=== PATIENT | male | born 1995 | race Caucasian/White ===

== ENCOUNTER 2017-08-26 22:07 | Emergency (ER) | payer MEDICAID ==
[~2017-08-26] VITALS: Ht 185.4 cm; Wt 79.4 kg
[~2017-08-26 22:07] MED LIST: ACET325 PO; ALBU90OI INH; ATOM25 PO; Amoxicillin500 MG PO; HYDACE5 PO; IBUP400 PO; IBUP600 PO; IBUP800 PO; JOCK ITCH15 GM TOP; MAGIC MOUTHWASH; Norco 5-325 Ta1 EACH PO; OXYACE5T PO; PENVK500 PO; PERM5TC TOP; Prednisone20 MG PO; RXOXYACE PO; SPACE CHAMBER1 EACH MC; WARF1 PO; WARF6 PO
[2017-08-26] MEDS ORDERED: IBUP600 PO (22:49)
[2017-08-26] MEDS ORDERED: Norco 5-325 Ta1 EACH PO (22:49)
== END 2017-08-26 23:03 | disposition home or self-care (01) ==
LOC: ER 22:07
DX: S63.114A Dislocation of metacarpophalangeal joint of right thumb, initial encounter (principal); F17.210 Nicotine dependence, cigarettes, uncomplicated; Z79.899 Other long term (current) drug therapy; W01.0XXA Fall on same level from slipping, tripping and stumbling without subsequent striking against object, initial encounter
CPT/HCPCS: 29125; 73130; 99283

== ENCOUNTER 2017-08-27 21:56 | Emergency (ER) | payer MEDICAID ==
[~2017-08-27] VITALS: Ht 185.4 cm; Wt 79.4 kg
== END 2017-08-27 23:40 | disposition home or self-care (01) ==
LOC: ER 21:56
DX: M79.641 Pain in right hand (principal); F17.210 Nicotine dependence, cigarettes, uncomplicated
CPT/HCPCS: 99282

== ENCOUNTER 2017-12-07 13:56 | Emergency (ER) | payer OTHER ==
[~2017-12-07] VITALS: Ht 185.4 cm; Wt 83.9 kg
[2017-12-07] MEDS ORDERED: Bactrim Ds Tab1 EACH PO (14:39)
== END 2017-12-07 14:42 | disposition home or self-care (01) ==
LOC: ER 13:56
DX: L03.113 Cellulitis of right upper limb (principal); F17.210 Nicotine dependence, cigarettes, uncomplicated
CPT/HCPCS: 99282

== ENCOUNTER 2018-04-16 13:09 | Emergency (ER) | payer OTHER ==
[~2018-04-16] VITALS: Ht 185.4 cm; Wt 82.1 kg
[~2018-04-16 13:09] MED LIST changes: +Bactrim Ds Tab1 EACH PO
[2018-04-16] MEDS ORDERED: DEXA4 PO (13:45)
[2018-04-16] MEDS ORDERED: Amoxicillin500 MG PO (13:45)
[2018-04-16] MEDS ORDERED: IBUP600 PO (13:54)
== END 2018-04-16 13:58 | disposition home or self-care (01) ==
LOC: ER 13:09
DX: J02.9 Acute pharyngitis, unspecified (principal); F17.210 Nicotine dependence, cigarettes, uncomplicated
CPT/HCPCS: 99283

== ENCOUNTER 2018-06-05 19:36 | Emergency (ER) | payer OTHER ==
[~2018-06-05] VITALS: Ht 185.4 cm; Wt 79.4 kg
[~2018-06-05 19:36] MED LIST changes: +DEXA4 PO
[2018-06-05] MEDS ORDERED: Augmentin 875-1 EACH PO (20:51)
== END 2018-06-05 21:08 | disposition home or self-care (01) ==
LOC: ER 19:36
DX: K04.7 Periapical abscess without sinus (principal); K03.81 Cracked tooth; K02.9 Dental caries, unspecified; F17.210 Nicotine dependence, cigarettes, uncomplicated
CPT/HCPCS: 41800; 99282-25

== ENCOUNTER 2019-02-12 15:36 | Inpatient (IN) | payer OTHER ==
[~2019-02-12] VITALS: Ht 177.8 cm; Wt 80.2 kg
[~2019-02-12 15:36] MED LIST changes: +Augmentin 875-1 EACH PO
[2019-02-12] MEDS ORDERED: ACET325 PO (15:42)
[2019-02-12] MEDS ORDERED: IBUP600 PO (15:43)
[2019-02-12 16:25] LABS: BASOPHILS ABSOLUTE AUTO 0.03 K/mm3 (0.00-0.23); BASOPHILS PERCENT AUTO 0 % (0-2); EOSINOPHILS ABSOLUTE AUTO 0.19 K/mm3 (0.00-0.68); EOSINOPHILS PERCENT AUTO 1 % (0-6); Hematocrit 44.8 % (37.0-53.0); Hemoglobin 14.8 g/dL (13.5-17.5); IMMATURE GRAN ABSOLUTE AUTO 0.09 K/mm3 (0.00-0.10); IMMATURE GRAN PERCENT AUTO 1 % (0-1); LYMPHOCYTES ABSOLUTE AUTO 1.91 K/mm3 (0.84-5.20); LYMPHOCYTES PERCENT AUTO 10 % (21-46); MONOCYTES PERCENT AUTO 6 % (4-13); Mean Corpuscular HGB 30.6 pg (26.0-34.0); Mean Corpuscular Volume 93 fL (80-100); NEUTROPHILS PERCENT AUTO 82 % (41-73); Platelet Count 318 K/mm3 (150-400); RDW Coefficient Variation 12.1 % (11.7-14.2); RDW Standard Deviation 41.7 fL (35.1-46.3); Red Blood Cell Count 4.83 M/mm3 (4.30-5.90); White Blood Cell Count 19.22 K/mm3 (4.00-11.30)
[2019-02-12 16:42] LABS: Alanine Aminotransfer (ALT/SGP 17 U/L (12-78); Albumin, Blood 3.9 g/dL (3.4-5.0); Albumin/Globulin Ratio 0.9 (0.8-1.8); Alk Phos 87 U/L (50-136); Anion Gap 5 mmol/L (6-16); Aspartate Aminotrans (AST/SGOT 14 U/L (12-37); Bilirubin, Total 0.3 mg/dL (0.1-1.0); Blood Urea Nitrogen 7 mg/dL (8-24); Bun/Creatinine Ratio 9.6 (12.0-20.0); CO2, Blood 27 mmol/L (21-32); Calcium, Blood 9.2 mg/dL (8.5-10.1); Chloride, Blood 105 mmol/L (98-108); Creatinine, Blood 0.73 mg/dL (0.60-1.20); Globulin, Blood 4.2 g/dL (2.2-4.0); Glomerular Filtration Rate >60 (60-); Glucose, Blood 93 mg/dL (70-99); Potassium, Blood 3.5 mmol/L (3.5-5.5); Sodium, Blood 137 mmol/L (136-145); Total Protein, Blood 8.1 g/dL (6.4-8.2)
[2019-02-13 05:05] LABS: BASOPHILS ABSOLUTE AUTO 0.05 K/mm3 (0.00-0.23); BASOPHILS PERCENT AUTO 0 % (0-2); EOSINOPHILS PERCENT AUTO 2 % (0-6); Hematocrit 43.1 % (37.0-53.0); Hemoglobin 14.2 g/dL (13.5-17.5); IMMATURE GRAN ABSOLUTE AUTO 0.08 K/mm3 (0.00-0.10); IMMATURE GRAN PERCENT AUTO 1 % (0-1); LYMPHOCYTES ABSOLUTE AUTO 2.29 K/mm3 (0.84-5.20); LYMPHOCYTES PERCENT AUTO 14 % (21-46); MONOCYTES ABSOLUTE AUTO 1.42 K/mm3 (0.16-1.47); MONOCYTES PERCENT AUTO 9 % (4-13); Mean Corpuscular HGB 30.5 pg (26.0-34.0); Mean Corpuscular HGB Conc 32.9 g/dL (31.5-36.5); Mean Corpuscular Volume 93 fL (80-100); Mean Platelet Volume 9.8 fL (9.1-12.4); NEUTROPHILS ABSOLUTE AUTO 12.46 K/mm3 (1.96-9.15); NEUTROPHILS PERCENT AUTO 75 % (41-73); Platelet Count 276 K/mm3 (150-400); RDW Coefficient Variation 12.3 % (11.7-14.2); RDW Standard Deviation 42.1 fL (35.1-46.3); Red Blood Cell Count 4.65 M/mm3 (4.30-5.90)
[2019-02-13 05:28] LABS: Anion Gap 6 mmol/L (6-16); Blood Urea Nitrogen 6 mg/dL (8-24); Bun/Creatinine Ratio 6.9 (12.0-20.0); CO2, Blood 26 mmol/L (21-32); Calcium, Blood 8.7 mg/dL (8.5-10.1); Chloride, Blood 106 mmol/L (98-108); Creatinine, Blood 0.88 mg/dL (0.60-1.20); Glomerular Filtration Rate >60 (60-); Glucose, Blood 111 mg/dL (70-99); Potassium, Blood 3.9 mmol/L (3.5-5.5); Sodium, Blood 138 mmol/L (136-145)
--- NOTE | 2019-02-13 06:10 | NUR ---
SHIFT SUMMARY ADMIT @ 193. AOX4. LS CLEAR, DENIES SOB. NO C/O NAUSEA. PAIN IN R ARM D/T CELLULITIS. TYLENOL @ 4400. 2 PERCOCET @ 0300. L AC IV HAS ABX INFUSING. R ARM IS VERY RED AND SWOLLEN WITH SOME OPEN AREAS. PT RECENTLY HAD TATTOO AND SAID HE DIDN'T COVER IT PROPERLY AND THINKS THAT IS THE CAUSE. HX OF METH USE BUT HE STATES HE SMOKES AND DOESN'T INJECT. REG DIET TOLERATING WELL.
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
--- NOTE | 2019-02-13 20:23 | NUR ---
PATIENT OUT FOR 45 MINUTES AFTER FOLLOWING S/O OUT FOR HER TO LEAVE. FOUND BY SECURITY AND TOLD HE NEEDED TO COME BACK INSIDE TO ROOM. PREVIOUS SHIFT RN AND THIS RN ENTERED ROOM AT SHIFT CHANGE TO EXPLAIN TO GIRLFRIEND THAT IF SHE WAS NOT ABLE TO STOP YELLING IN ROOM, THAT SECURITY WOULD BE CALLED TO REMOVE HER FROM BUILDING. 30 MINUTES LATER, SHE WAS ASKED BY THIS RN TO STOP YELLING AND THAT SHE WAS UPSETTING OTHER PATIENTS. SHE LEFT TEARFULLY AT 1930. PATIENT RETURNED ALONE TO ROOM AT 2019.
[2019-02-14 04:42] LABS: BASOPHILS ABSOLUTE AUTO 0.03 K/mm3 (0.00-0.23); BASOPHILS PERCENT AUTO 0 % (0-2); EOSINOPHILS ABSOLUTE AUTO 0.33 K/mm3 (0.00-0.68); EOSINOPHILS PERCENT AUTO 2 % (0-6); Hematocrit 44.1 % (37.0-53.0); Hemoglobin 14.5 g/dL (13.5-17.5); IMMATURE GRAN ABSOLUTE AUTO 0.09 K/mm3 (0.00-0.10); IMMATURE GRAN PERCENT AUTO 1 % (0-1); LYMPHOCYTES ABSOLUTE AUTO 3.33 K/mm3 (0.84-5.20); LYMPHOCYTES PERCENT AUTO 20 % (21-46); MONOCYTES ABSOLUTE AUTO 1.79 K/mm3 (0.16-1.47); MONOCYTES PERCENT AUTO 11 % (4-13); Mean Corpuscular HGB Conc 32.9 g/dL (31.5-36.5); Mean Corpuscular Volume 91 fL (80-100); Mean Platelet Volume 9.8 fL (9.1-12.4); NEUTROPHILS PERCENT AUTO 67 % (41-73); Platelet Count 277 K/mm3 (150-400); RDW Coefficient Variation 12.2 % (11.7-14.2); RDW Standard Deviation 40.7 fL (35.1-46.3); Red Blood Cell Count 4.83 M/mm3 (4.30-5.90); White Blood Cell Count 17.07 K/mm3 (4.00-11.30)
[2019-02-14 05:02] LABS: Anion Gap 8 mmol/L (6-16); Blood Urea Nitrogen 7 mg/dL (8-24); Bun/Creatinine Ratio 8.3 (12.0-20.0); CO2, Blood 25 mmol/L (21-32); Calcium, Blood 8.8 mg/dL (8.5-10.1); Chloride, Blood 106 mmol/L (98-108); Creatinine, Blood 0.84 mg/dL (0.60-1.20); Glomerular Filtration Rate >60 (60-); Glucose, Blood 72 mg/dL (70-99); Potassium, Blood 3.7 mmol/L (3.5-5.5); Sodium, Blood 139 mmol/L (136-145)
--- NOTE | 2019-02-14 17:07 | NUR ---
Shift Summary A/Ox4. Cooperative with care, no behavioral issues noted this shift. Pt went outside x 1 to smoke, has been refusing nicotine patch, he takes about an hour when he goes. This RN has been educating pt on the need to wait until abx has completed before he can go, pt is agreeable. Denies N/V. C/o R arm throbbing and pulsating pain. Medicated per EMAR x 1. Independent in room, sister has been at bedside. No other acute changes this shift.
[2019-02-15 13:31] LABS: Vancomycin, Trough 23.6 ug/mL (5.0-10.0)
--- NOTE | 2019-02-15 16:47 | NUR ---
Shift Summary A/Ox4. Pleasant and cooperative with care. Pt continues to decline nicotine patch and prefers to go outside for cigarette. Pt went outside x 2 today. C/o R arm pain of 8/10, relieved with toradol and tylenol and down to 4/10. Medicated for pain x 1. No c/o issues with GI/. Wound draining purulent, brown tinged, non-odorous drainage on R arm above elbow. Wound care x 1 to contain drainage. Plan is poss. d/c tomorrow c oral abx pending WBC trends.
--- NOTE | 2019-02-15 23:29 | NUR ---
REMOVED DRESSING RIGHT MID ARM AFTER PATIENT SHOWERED THIS EVENING. PARTIALLLY ATTACHED PIECE OF MACERATED APPEARING SLOUGH WAS EXPRESSED FROM WOUND BED AND DETACHED. PATIENT TOLERATED FAIRLY WELL, BUT DID STATE THAT WAS "MUCH WORSE THAN THE EXPRESSION OF THE PURULENT FLUID EXPRESSED LAST NIGHT AND THIS MORNING. NO BLEEDING AT SITE AFTERWARDS. ALLOWED WOUND TO BE OPEN TO AIR FOR APPROX 30 MINUTES BEFORE REDRESSING IT USING HYDROGEL AND ABD OVERLAY.
--- NOTE | 2019-02-16 05:41 | NUR ---
ACTUALLLY SLEPT WELL OVERNIGHT. OUT TWICE TO SMOKE. RIGHT ARM DRESSING REMAINED INTACT AFTER CHANGE WHEN PATIENT GOT OUT OF SHOWER. SMALLER SCABBED AREA ADJACENT TO OPEN AREA NEAR ELBOW IS NOW OPEN AND DRAINING. PATIENT STATED SAME PURULENT STUFF CAME OUT OF THAT THE LARGER ONE. COVERED THAT AREA W ITH HYDROGEL, GAUZE AND BANDAID. NO FURTHER CHANGES OVERNIGHT
[2019-02-16] MEDS ORDERED: CLIN300 PO (11:06)
--- NOTE | 2019-02-16 12:50 | NUR ---
PT DCD HOME. ALL RX AND FOLLOW UP APPTS REVIEWED WITH PT WHO VERBALIZES AN UNDERSTANDING. RX FAXED TO [facility]. PT HAS [facility] NEW PATIENT PACKET AND AGREES TO CALL TO SET UP NEW PT APPT. IV REMOVED WITH NO ISSUE. RIGHT ARM WOUND WAS CLEANSED AND DRESSED BEFORE DC. ALL PERSONAL BELONGINGS SENT WITH PT. PT STABLE UPON DC.
== END 2019-02-16 12:45 | disposition home or self-care (01) | DRG 872 ==
LOC: ER 15:36 → MEDS 18:02 → ENPENDDIS 02-16 09:36 → MEDS 02-16 12:45
PROVIDERS: Emergency Medicine; Hospitalist; Nurse Practitioner Acute Care; Physician Assistant; ADMIT Student in an Organized Health Care Education/Training Program
DX: A41.9 Sepsis, unspecified organism (principal); L03.113 Cellulitis of right upper limb; F32.9 Major depressive disorder, single episode, unspecified; F17.200 Nicotine dependence, unspecified, uncomplicated; F43.10 Post-traumatic stress disorder, unspecified; K02.9 Dental caries, unspecified
CPT/HCPCS: 36415; 76882; 80048; 80053; 80202; 83605; 85025; 87040; 90686; 96365; 96367; 96375; 99284-25; A9270; J0690; J1170; J1885; J2405; J2543; J3370; J7030; J7050; Q0163

== ENCOUNTER 2019-03-02 14:11 | Emergency (ER) | payer OTHER ==
[~2019-03-02] VITALS: Ht 185.4 cm; Wt 80.7 kg
[~2019-03-02 14:11] MED LIST changes: +CLIN300 PO
[2019-03-02] MEDS ORDERED: Veetids 500500 MG PO (15:15)
== END 2019-03-02 15:22 | disposition home or self-care (01) ==
LOC: ER 14:11
DX: K02.9 Dental caries, unspecified (principal); F17.210 Nicotine dependence, cigarettes, uncomplicated
CPT/HCPCS: 99282

== ENCOUNTER 2019-03-09 12:04 | Emergency (ER) | payer OTHER ==
[~2019-03-09] VITALS: Ht 185.4 cm; Wt 81.2 kg
[~2019-03-09 12:04] MED LIST changes: +Veetids 500500 MG PO
[2019-03-09 13:06] LABS: Source, Urine Clean Catch
[2019-03-09 13:18] LABS: Bilirubin, Urine Neg (Neg); Blood, Urine 1+ (Neg); Glucose Qualitative, Urine Neg (Neg); Ketones, Urine Neg (Neg); Leukocyte Esterase, Urine 2+ (Neg); Nitrite, Urine Pos (Neg); Protein, Urine Neg (Neg); Specific Gravity, Urine 1.015 (1.003-1.022); Urobilinogen, Urine NORM (Normal)
[2019-03-09 13:37] LABS: Appearance, Urine Hazy (Clear); Color, Urine Yellow (P-Yellow)
[2019-03-09 13:38] LABS: Bacteria Many /hpf; Squamous Epithelial Cells Rare /hpf (Few)
[2019-03-09] MEDS ORDERED: Bactrim Ds Tab1 EACH PO (13:58)
== END 2019-03-09 14:00 | disposition home or self-care (01) ==
LOC: ER 12:04
PROVIDERS: Physician Assistant
DX: N39.0 Urinary tract infection, site not specified (principal); F17.210 Nicotine dependence, cigarettes, uncomplicated
CPT/HCPCS: 81001; 87077; 87086; 87186; 99283; A9270-GY

== ENCOUNTER 2019-07-12 12:40 | Emergency (ER) | payer OTHER ==
[~2019-07-12] VITALS: Ht 185.4 cm; Wt 83.9 kg
[2019-07-12] MEDS ORDERED: Bactrim Ds Tab1 EACH PO (13:26)
[2019-07-12] MEDS ORDERED: CEPH500 PO (13:26)
== END 2019-07-12 13:32 | disposition home or self-care (01) ==
LOC: ER 12:40
DX: L02.411 Cutaneous abscess of right axilla (principal); K13.0 Diseases of lips; F17.210 Nicotine dependence, cigarettes, uncomplicated; Z88.0 Allergy status to penicillin; Z88.5 Allergy status to narcotic agent
CPT/HCPCS: 96372; 99283; J1885

== ENCOUNTER 2019-07-15 15:08 | Emergency (ER) | payer OTHER ==
[~2019-07-15] VITALS: Ht 185.4 cm; Wt 83.9 kg
[~2019-07-15 15:08] MED LIST changes: +CEPH500 PO
[2019-07-15] MEDS ORDERED: Mupirocin22 GM TOP (15:48)
== END 2019-07-15 15:44 | disposition home or self-care (01) ==
LOC: ER 15:08
DX: L02.411 Cutaneous abscess of right axilla (principal); F17.210 Nicotine dependence, cigarettes, uncomplicated; Z88.0 Allergy status to penicillin; Z88.5 Allergy status to narcotic agent
CPT/HCPCS: 10061; 99283-25

== ENCOUNTER 2019-10-03 12:47 | Emergency (ER) | payer OTHER ==
[~2019-10-03] VITALS: Ht 185.4 cm; Wt 83.9 kg
[~2019-10-03 12:47] MED LIST changes: +Cleocin HCl300 MG PO; +IBU800 MG PO; +Mupirocin22 GM TOP
[2019-10-03] MEDS ORDERED: Cleocin HCl300 MG PO (14:12)
[2019-10-03] MEDS ORDERED: KETO10 PO (14:12)
== END 2019-10-03 14:24 | disposition home or self-care (01) ==
LOC: ER 12:47
DX: K02.9 Dental caries, unspecified (principal); F17.210 Nicotine dependence, cigarettes, uncomplicated; Z88.0 Allergy status to penicillin; Z88.6 Allergy status to analgesic agent; Z79.899 Other long term (current) drug therapy
CPT/HCPCS: 96372; 99282-25; J1885

== ENCOUNTER 2020-06-02 10:49 | Emergency (ER) | payer OTHER ==
[~2020-06-02] VITALS: Ht 185.4 cm; Wt 88.5 kg
[~2020-06-02 10:49] MED LIST changes: +KETO10 PO
[2020-06-02] MEDS ORDERED: BANOPHEN25 MG PO (11:23)
[2020-06-02] MEDS ORDERED: ALLERCLEAR10 MG PO (11:23)
== END 2020-06-02 11:19 | disposition home or self-care (01) ==
LOC: ER 10:49
DX: L23.7 Allergic contact dermatitis due to plants, except food (principal); F17.210 Nicotine dependence, cigarettes, uncomplicated; Z88.0 Allergy status to penicillin; Z88.6 Allergy status to analgesic agent
CPT/HCPCS: 96372; 99283-25; J3301

== ENCOUNTER 2020-09-12 14:52 | Emergency (ER) | payer OTHER ==
[~2020-09-12] VITALS: Ht 180.3 cm; Wt 68.0 kg
[~2020-09-12 14:52] MED LIST changes: +ALLERCLEAR10 MG PO; +BANOPHEN25 MG PO
[2020-09-12] MEDS ORDERED: Cleocin HCl300 MG PO (16:29)
== END 2020-09-12 17:00 | disposition home or self-care (01) ==
LOC: ER 14:52
DX: L03.115 Cellulitis of right lower limb (principal); F15.90 Other stimulant use, unspecified, uncomplicated; F17.210 Nicotine dependence, cigarettes, uncomplicated; Z88.0 Allergy status to penicillin; Z88.6 Allergy status to analgesic agent; Z79.899 Other long term (current) drug therapy
CPT/HCPCS: 99283; A9270

== ENCOUNTER 2020-10-17 20:14 | Emergency (ER) | payer OTHER ==
[~2020-10-17] VITALS: Ht 185.4 cm; Wt 88.5 kg
[2020-10-17] MEDS ORDERED: Norco 5-325 Ta1 EACH PO (23:20)
[2020-10-17] MEDS ORDERED: SULTRIDS PO (23:28)
[2020-10-17] MEDS ORDERED: CEPH500 PO (23:28)
== END 2020-10-18 00:16 | disposition home or self-care (01) ==
LOC: ER 20:14
DX: K13.0 Diseases of lips (principal); F17.210 Nicotine dependence, cigarettes, uncomplicated; Z88.0 Allergy status to penicillin; Z88.6 Allergy status to analgesic agent
CPT/HCPCS: 10060; 99283-25; A9270

== ENCOUNTER 2022-03-07 14:55 | Emergency (ER) | payer OTHER ==
[~2022-03-07] VITALS: Ht 185.4 cm; Wt 84.8 kg
[~2022-03-07 14:55] MED LIST changes: +Monodox100 MG PO; +SULTRIDS PO
[2022-03-07] MEDS ORDERED: Bactrim Ds Tab1 EACH PO (15:50)
[2022-03-07] MEDS ORDERED: IBUP600 PO (15:50)
[2022-03-07] MEDS ORDERED: CEPH500 PO (15:50)
== END 2022-03-07 15:52 | disposition home or self-care (01) ==
LOC: ER 14:55
DX: L03.116 Cellulitis of left lower limb (principal); L03.115 Cellulitis of right lower limb; Z88.0 Allergy status to penicillin; Z79.899 Other long term (current) drug therapy; F17.210 Nicotine dependence, cigarettes, uncomplicated
CPT/HCPCS: 99282

== ENCOUNTER 2022-04-18 10:10 | Emergency (ER) | payer OTHER ==
[~2022-04-18] VITALS: Ht 185.4 cm; Wt 81.7 kg
[2022-04-18 11:48] LABS: BASOPHILS ABSOLUTE AUTO 0.03 K/mm3 (0.00-0.23); BASOPHILS PERCENT AUTO 0 % (0-2); EOSINOPHILS ABSOLUTE AUTO 0.28 K/mm3 (0.00-0.68); EOSINOPHILS PERCENT AUTO 2 % (0-6); Hematocrit 45.5 % (37.0-53.0); Hemoglobin 15.2 g/dL (13.5-17.5); IMMATURE GRAN ABSOLUTE AUTO 0.05 K/mm3 (0.00-0.10); IMMATURE GRAN PERCENT AUTO 0 % (0-1); LYMPHOCYTES ABSOLUTE AUTO 2.58 K/mm3 (0.84-5.20); LYMPHOCYTES PERCENT AUTO 19 % (21-46); MONOCYTES ABSOLUTE AUTO 0.79 K/mm3 (0.16-1.47); MONOCYTES PERCENT AUTO 6 % (4-13); Mean Corpuscular HGB 30.2 pg (26.0-34.0); Mean Corpuscular HGB Conc 33.4 g/dL (31.5-36.5); Mean Corpuscular Volume 90 fL (80-100); Mean Platelet Volume 9.6 fL (9.1-12.4); NEUTROPHILS ABSOLUTE AUTO 9.83 K/mm3 (1.96-9.15); NEUTROPHILS PERCENT AUTO 73 % (41-73); Platelet Count 316 K/mm3 (150-400); RDW Coefficient Variation 13.2 % (11.7-14.2); RDW Standard Deviation 43.3 fL (35.1-46.3); Red Blood Cell Count 5.04 M/mm3 (4.30-5.90); White Blood Cell Count 13.56 K/mm3 (4.00-11.30)
[2022-04-18 12:07] LABS: Bun/Creatinine Ratio 16.9 (12.0-20.0); Calcium, Blood 8.6 mg/dL (8.5-10.1); Creatinine, Blood 0.83 mg/dL (0.60-1.20); Potassium, Blood 4.4 mmol/L (3.5-5.5)
[2022-04-18] MEDS ORDERED: CLIN300 PO (13:36)
[2022-04-18] MEDS ORDERED: NAPR500 PO (13:36)
== END 2022-04-18 13:44 | disposition home or self-care (01) ==
LOC: ER 10:10
PROVIDERS: Physician Assistant
DX: L03.011 Cellulitis of right finger (principal); F17.210 Nicotine dependence, cigarettes, uncomplicated; Z79.899 Other long term (current) drug therapy; Z88.0 Allergy status to penicillin
CPT/HCPCS: 36415; 73140; 80048; 85025; A9270

== ENCOUNTER 2023-01-21 15:24 | Emergency (ER) | payer OTHER ==
[~2023-01-21] VITALS: Ht 185.4 cm; Wt 83.9 kg
[~2023-01-21 15:24] MED LIST changes: +NAPR500 PO
[2023-01-21 15:40] VITALS: BP 149/83
[2023-01-21 16:02] LABS: BASOPHILS ABSOLUTE AUTO 0.03 K/mm3 (0.00-0.23); BASOPHILS PERCENT AUTO 0 % (0-2); EOSINOPHILS PERCENT AUTO 1 % (0-6); Hemoglobin 13.8 g/dL (13.5-17.5); IMMATURE GRAN ABSOLUTE AUTO 0.05 K/mm3 (0.00-0.10); IMMATURE GRAN PERCENT AUTO 0 % (0-1); LYMPHOCYTES ABSOLUTE AUTO 2.21 K/mm3 (0.84-5.20); LYMPHOCYTES PERCENT AUTO 15 % (21-46); MONOCYTES ABSOLUTE AUTO 1.04 K/mm3 (0.16-1.47); MONOCYTES PERCENT AUTO 7 % (4-13); Mean Corpuscular HGB 30.4 pg (26.0-34.0); Mean Corpuscular HGB Conc 34.5 g/dL (31.5-36.5); Mean Corpuscular Volume 88 fL (80-100); Mean Platelet Volume 10.2 fL (9.1-12.4); NEUTROPHILS ABSOLUTE AUTO 11.25 K/mm3 (1.96-9.15); NEUTROPHILS PERCENT AUTO 76 % (41-73); Platelet Count 234 K/mm3 (150-400); RDW Coefficient Variation 13.1 % (11.7-14.2); RDW Standard Deviation 42.7 fL (35.1-46.3); Red Blood Cell Count 4.54 M/mm3 (4.30-5.90); White Blood Cell Count 14.78 K/mm3 (4.00-11.30)
[2023-01-21 16:13] LABS: Albumin, Blood 3.7 g/dL (3.4-5.0); Bilirubin, Total 1.3 mg/dL (0.1-1.0); Bun/Creatinine Ratio 15.3 (12.0-20.0); Calcium, Blood 8.7 mg/dL (8.5-10.1); Creatinine, Blood 1.18 mg/dL (0.60-1.20); Globulin, Blood 3.7 g/dL (2.2-4.0); Potassium, Blood 3.7 mmol/L (3.5-5.5); Total Protein, Blood 7.4 g/dL (6.4-8.2)
[2023-01-21] MEDS ORDERED: CEPH500 PO (19:51)
== END 2023-01-21 20:25 | disposition home or self-care (01) ==
LOC: ER 15:24
PROVIDERS: Physician Assistant
DX: L03.116 Cellulitis of left lower limb (principal); J45.909 Unspecified asthma, uncomplicated; F17.210 Nicotine dependence, cigarettes, uncomplicated; Z88.0 Allergy status to penicillin; Z79.899 Other long term (current) drug therapy
CPT/HCPCS: 36415; 73630; 80053; 83605; 85025; 87040; 99284-25; A9270

== ENCOUNTER 2023-08-24 13:48 | Emergency (ER) | payer OTHER ==
[~2023-08-24] VITALS: Ht 185.4 cm; Wt 86.2 kg
[2023-08-24 14:34] LABS: BASOPHILS ABSOLUTE AUTO 0.03 K/mm3 (0.00-0.23); BASOPHILS PERCENT AUTO 0 % (0-2); EOSINOPHILS ABSOLUTE AUTO 0.19 K/mm3 (0.00-0.68); EOSINOPHILS PERCENT AUTO 1 % (0-6); Hematocrit 40.9 % (37.0-53.0); Hemoglobin 13.4 g/dL (13.5-17.5); IMMATURE GRAN ABSOLUTE AUTO 0.07 K/mm3 (0.00-0.10); IMMATURE GRAN PERCENT AUTO 0 % (0-1); LYMPHOCYTES ABSOLUTE AUTO 2.52 K/mm3 (0.84-5.20); LYMPHOCYTES PERCENT AUTO 14 % (21-46); MONOCYTES ABSOLUTE AUTO 1.01 K/mm3 (0.16-1.47); MONOCYTES PERCENT AUTO 6 % (4-13); Mean Corpuscular HGB 30.6 pg (26.0-34.0); Mean Corpuscular HGB Conc 32.8 g/dL (31.5-36.5); Mean Corpuscular Volume 93 fL (80-100); Mean Platelet Volume 9.1 fL (9.1-12.4); NEUTROPHILS ABSOLUTE AUTO 13.68 K/mm3 (1.96-9.15); NEUTROPHILS PERCENT AUTO 78 % (41-73); Platelet Count 379 K/mm3 (150-400); RDW Coefficient Variation 13.4 % (11.7-14.2); RDW Standard Deviation 46.2 fL (35.1-46.3); Red Blood Cell Count 4.38 M/mm3 (4.30-5.90)
[2023-08-24] MEDS ORDERED: Cephalexin Monohydrate 500 MG Cap PO ONE (14:35)
[2023-08-24] MEDS ORDERED: Trimethoprim/Sulfamethoxazole DS Tab PO ONE (14:35)
[2023-08-24] MEDS ORDERED: Ketorolac Tromethamine 30mg Vial IV ONE (14:35)
[2023-08-24] MEDS ORDERED: NS 1,000 ML IV SCH (14:40)
[2023-08-24 14:51] LABS: Albumin, Blood 3.3 g/dL (3.4-5.0); Albumin/Globulin Ratio 0.8 (0.8-1.8); Bilirubin, Total 0.3 mg/dL (0.1-1.0); Calcium, Blood 8.8 mg/dL (8.5-10.1); Creatinine, Blood 0.72 mg/dL (0.60-1.20); Globulin, Blood 4.1 g/dL (2.2-4.0); Potassium, Blood 3.9 mmol/L (3.5-5.5); Total Protein, Blood 7.4 g/dL (6.4-8.2)
[2023-08-24] MEDS ORDERED: SULTRIDS PO (15:52)
[2023-08-24] MEDS ORDERED: IBU600 M1 PO (15:52)
[2023-08-24] MEDS ORDERED: CEPH500 PO (15:52)
[2023-08-24 16:00] VITALS: BP 140/125
== END 2023-08-24 16:16 | disposition home or self-care (01) ==
LOC: ER 13:48
PROVIDERS: Student in an Organized Health Care Education/Training Program
DX: L02.01 Cutaneous abscess of face (principal); L02.11 Cutaneous abscess of neck; L03.211 Cellulitis of face; L03.221 Cellulitis of neck; F15.10 Other stimulant abuse, uncomplicated; F17.210 Nicotine dependence, cigarettes, uncomplicated; Z88.0 Allergy status to penicillin; Z79.1 Long term (current) use of non-steroidal anti-inflammatories (NSAID); Z79.2 Long term (current) use of antibiotics; Z79.899 Other long term (current) drug therapy
CPT/HCPCS: 10061; 80053; 83605; 85025; 87070; 87075; 87077; 87147; 87186; 87205; 96361-59; 96374-59; 99283-25; A9270; J1885; J7030

== ENCOUNTER 2024-11-10 11:34 | Observation (INO) | payer OTHER ==
[~2024-11-10] VITALS: Ht 177.8 cm; Wt 88.0 kg
[~2024-11-10 11:34] MED LIST changes: +BACTRIM DS TAB1 EAC2 PO; +IBU600 M1 PO
[2024-11-10] MEDS ORDERED: Midazolam HCl 1MG / ML 2ML Vial IV ONE ×3 (12:00→14:25)
[2024-11-10] MEDS ORDERED: NS 1,000 ML IV SCH ×2 (12:00→17:20)
[2024-11-10 12:18] LABS: BASOPHILS ABSOLUTE AUTO 0.04 K/mm3 (0.00-0.23); BASOPHILS PERCENT AUTO 0 % (0-2); EOSINOPHILS ABSOLUTE AUTO 0.16 K/mm3 (0.00-0.68); EOSINOPHILS PERCENT AUTO 1 % (0-6); Hematocrit 39.7 % (37.0-53.0); Hemoglobin 13.5 g/dL (13.5-17.5); IMMATURE GRAN ABSOLUTE AUTO 0.10 K/mm3 (0.00-0.10); IMMATURE GRAN PERCENT AUTO 1 % (0-1); LYMPHOCYTES ABSOLUTE AUTO 1.84 K/mm3 (0.84-5.20); LYMPHOCYTES PERCENT AUTO 10 % (21-46); MONOCYTES ABSOLUTE AUTO 1.91 K/mm3 (0.16-1.47); MONOCYTES PERCENT AUTO 10 % (4-13); Mean Corpuscular HGB Conc 34.0 g/dL (31.5-36.5); Mean Corpuscular Volume 89 fL (80-100); NEUTROPHILS ABSOLUTE AUTO 15.02 K/mm3 (1.96-9.15); NEUTROPHILS PERCENT AUTO 79 % (41-73); NRBC ABSOLUTE 0.00 K/mm3 (0.00-0.02); NRBC Auto 0.0 /100 WBC (0.0-0.2); Platelet Count 228 K/mm3 (150-400); RDW Coefficient Variation 13.0 % (11.7-14.2); RDW Standard Deviation 42.2 fL (35.1-46.3)
[2024-11-10 12:53] LABS: Acetaminophen, Random <2.0 ug/mL (10.0-30.0); Ethanol (Alcohol), Blood, Med <3 mg/dL; Salicylate <1.7 mg/dL (2.8-20.0)
[2024-11-10 12:59] LABS: Alanine Aminotransfer (ALT/SGP 32 U/L (12-78); Albumin, Blood 3.8 g/dL (3.4-5.0); Albumin/Globulin Ratio 1.2 (0.8-1.8); Anion Gap 8 mmol/L (3-11); Aspartate Aminotrans (AST/SGOT 106 U/L (12-37); Bilirubin, Total 1.4 mg/dL (0.1-1.0); Blood Urea Nitrogen 32 mg/dL (8-24); CO2, Blood 26 mmol/L (21-32); Calcium, Blood 8.7 mg/dL (8.5-10.1); Chloride, Blood 105 mmol/L (98-108); Creatinine, Blood 1.33 mg/dL (0.60-1.20); Globulin, Blood 3.2 g/dL (2.2-4.0); Glucose, Blood 63 mg/dL (70-99); Potassium, Blood 3.9 mmol/L (3.5-5.5); Sodium, Blood 135 mmol/L (136-145); Total Protein, Blood 7.0 g/dL (6.4-8.2)
[2024-11-10 13:49] LABS: U Amphetamine Screen DETECTED; U Cannabinoids Screen DETECTED; U Methamphetamine Screen DETECTED
[2024-11-10 13:50] LABS: U Barbituate Screen Not Detected; U Benzodiazapine Screen Not Detected; U Buprenorphine Screen Not Detected; U Cocaine Screen Not Detected; U Methadone Screen DETECTED; U Opiates Screen Not Detected; U Oxycodone Screen Not Detected; U Phencyclidine Screen Not Detected
[2024-11-10] MEDS ORDERED: Diazepam 5 MG / ML 2ML SYR IV PRN (18:10)
[2024-11-10] MEDS ORDERED: Ondansetron HCl 2 MG / ML 2ML Vial IV PRN (18:15)
[2024-11-10 18:43] LABS: Source, Urine Clean Catch
[2024-11-10 18:56] LABS: Bilirubin, Urine Neg (Neg); Color, Urine Yellow (P-Yellow); Glucose Qualitative, Urine Neg (Neg); Ketones, Urine 2+ (Neg); Leukocyte Esterase, Urine Neg (Neg); Protein, Urine 2+ (Neg); Specific Gravity, Urine 1.030 (1.003-1.022); Urobilinogen, Urine NORM (Normal)
[2024-11-10] MEDS ORDERED: FentaNYL Citrate 50 MCG/ML 2 ML Injection IV ONE (19:00)
[2024-11-10] MEDS ORDERED: Haloperidol Lactate Inj. 5 MG/ML Injection IV ONE (19:00)
[2024-11-10 19:04] LABS: White Blood Cells, Urine 0-2 /hpf (0-5)
[2024-11-11] VITALS (7 sets, daily range): BP systolic 109–122; BP diastolic 57–75
[2024-11-11] MEDS ORDERED: Albuterol 2.5 MG/3 ML VIAL INH PRN (03:40)
[2024-11-11 05:10] LABS: Anion Gap 9.0 mmol/L (3-11); Blood Urea Nitrogen 24.0 mg/dL (8-24); CO2, Blood 24.0 mmol/L (21-32); Calcium, Blood 7.4 mg/dL (8.5-10.1); Chloride, Blood 110.0 mmol/L (98-108); Creatinine, Blood 0.93 mg/dL (0.60-1.20); Glucose, Blood 83.0 mg/dL (70-99); Potassium, Blood 3.7 mmol/L (3.5-5.5); Sodium, Blood 139.0 mmol/L (136-145)
--- NOTE | 2024-11-11 06:33 | NUR ---
PT STABLE SINCE ADMIT. PT REMAINED AOX4. PT TOLERATING IV FLUIDS WELL. HR RATE IMPROVING. PT HAS BEEN COOPERATIVE AND PLEASANT. PT TOLERATING PO INTAKE WELL. PT HAS BEEN SLEEPING MOSTLY SINCE ADMIT BUT IS ABLE TO WAKE UP AOX4.
[2024-11-11] MEDS ORDERED: Enoxaparin 40 MG/0.4 ML SYR SC SCH (09:00)
[2024-11-11 09:08] LABS: BASOPHILS ABSOLUTE AUTO 0.02 K/mm3 (0.00-0.23); BASOPHILS PERCENT AUTO 0 % (0-2); EOSINOPHILS ABSOLUTE AUTO 0.37 K/mm3 (0.00-0.68); EOSINOPHILS PERCENT AUTO 5 % (0-6); Hematocrit 38.1 % (37.0-53.0); Hemoglobin 12.4 g/dL (13.5-17.5); IMMATURE GRAN ABSOLUTE AUTO 0.01 K/mm3 (0.00-0.10); IMMATURE GRAN PERCENT AUTO 0 % (0-1); LYMPHOCYTES ABSOLUTE AUTO 2.93 K/mm3 (0.84-5.20); LYMPHOCYTES PERCENT AUTO 36 % (21-46); MONOCYTES ABSOLUTE AUTO 0.65 K/mm3 (0.16-1.47); MONOCYTES PERCENT AUTO 8 % (4-13); Mean Corpuscular HGB Conc 32.5 g/dL (31.5-36.5); Mean Corpuscular Volume 92 fL (80-100); NEUTROPHILS ABSOLUTE AUTO 4.20 K/mm3 (1.96-9.15); NEUTROPHILS PERCENT AUTO 52 % (41-73); NRBC ABSOLUTE 0.00 K/mm3 (0.00-0.02); NRBC Auto 0.0 /100 WBC (0.0-0.2); Platelet Count 203 K/mm3 (150-400); RDW Coefficient Variation 13.4 % (11.7-14.2); RDW Standard Deviation 45.3 fL (35.1-46.3)
[2024-11-11] MEDS ORDERED: Lidocaine 2% Viscous Soln 20 ML,Nystatin 100,000 Unit/ml Susp 20 ML,Mag Hydrox/Al Hydro... MT SCH (17:00)
--- NOTE | 2024-11-11 18:02 | NUR ---
SHIFT SUMMARY PATIENT AOX4 ABLE TO MAKE NEEDS KNOWN. HE DENIES CHEST PAIN AND SOB. HIS VITALS ARE STABLE AND HE IS TOLERATING HIS MEALS AND AMBULATING TO THE RESTROOM.
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
[2024-11-12 03:52] VITALS: BP 109/64
[2024-11-12 04:22] LABS: Anion Gap 5.0 mmol/L (3-11); Blood Urea Nitrogen 13.0 mg/dL (8-24); CO2, Blood 28.0 mmol/L (21-32); Calcium, Blood 7.7 mg/dL (8.5-10.1); Chloride, Blood 111.0 mmol/L (98-108); Creatinine, Blood 0.74 mg/dL (0.60-1.20); Glucose, Blood 88.0 mg/dL (70-99); Potassium, Blood 4.3 mmol/L (3.5-5.5); Sodium, Blood 140.0 mmol/L (136-145)
--- NOTE | 2024-11-12 05:02 | NUR ---
SHIFT SUMMARY PT A&O X4, CALM, COOPERATIVE TO CARE. PT MEDICAL STATUS WITH NO TELE. VSS T/O SHIFT. O2 >92% ON RA, HE DENIES ANY SOB. PT GETTING UP TO USE URINAL T/O SHIFT. NO ACUTE CHANGES T/O SHIFT. PT DENIES ANY QUESTIONS/CONCERNS AT THIS TIME. PT RESTING IN BED, CALL LIGHT IN REACH. WILL MONITOR PT AND REPORT TO ONCOMING RN.
[2024-11-12 07:19] VITALS: BP 115/72
[2024-11-12 12:03] VITALS: BP 123/83
[2024-11-12] MEDS ORDERED: NYST237S MT (12:06)
--- NOTE | 2024-11-12 14:00 | NUR ---
SHIFT SUMMARY PATIENT IS AOX4 ABLE TO MAKE NEEDS KNOWN HE DENIES CHEST PAIN OR SOB. HE IS TOLERATING HIS MEALS AND AMBULATING TO THE RESTROOM INDEPENDENTLY VOIDING WITH NO ISSUES. THE HOSPITALIST SPOKE WITH THE PATIENT AT BEDSIDE ANSWERING ALL QUESTIONS. THE DISCHARGE INSTRUCTIONS WERE EXPLAINED AND THE PATIENT UNDERSTANDS ALL.
== END 2024-11-12 13:58 | disposition home or self-care (01) ==
LOC: ER 11:34 → PCU 11:35
PROVIDERS: Emergency Medicine; Internal Medicine; Nurse Practitioner Acute Care; ADMIT Internal Medicine
DX: T40.3X1A Poisoning by methadone, accidental (unintentional), initial encounter (principal); T40.711A Poisoning by cannabis, accidental (unintentional), initial encounter; G92.8 Other toxic encephalopathy; F15.10 Other stimulant abuse, uncomplicated; F11.10 Opioid abuse, uncomplicated; F12.10 Cannabis abuse, uncomplicated; M62.82 Rhabdomyolysis; N17.9 Acute kidney failure, unspecified; R33.9 Retention of urine, unspecified; E87.1 Hypo-osmolality and hyponatremia; D72.829 Elevated white blood cell count, unspecified; L43.9 Lichen planus, unspecified; J45.20 Mild intermittent asthma, uncomplicated; F17.210 Nicotine dependence, cigarettes, uncomplicated; Z79.2 Long term (current) use of antibiotics
CPT/HCPCS: 36415; 74177; 80048; 80053; 80320; 81001; 82550; 85025; 93005; 93010; 96361; 96372; 96374-59; 96375; 96376; 99285-25; A9270; G0378; G0480; J1630; J1650; J2250; J3010; J7030; J7120; Q9967